=== PATIENT | male | born 1965 | race Caucasian/White ===

== ENCOUNTER 2021-03-24 17:02 | Inpatient (IN) ==
[2021-03-24] MEDS ORDERED: SODIUM CHLORIDE 0.9% 1,000 ML IV STA (18:32)
[2021-03-24 18:40] LABS: Basophils % 0.1 % (0.0-0.8); Hematocrit 30.1 VOL% (42.0-52.0); Hemoglobin 9.9 GM/DL (14.0-18.0); Immature Granulocytes % 0.6 %; Lymphocytes # 2.1 10*3/uL (1.4-4.0); Lymphocytes % 13.6 % (21.2-54.2); Mean Corpuscular HGB Conc 32.9 GM/DL (32-36); Mean Corpuscular Volume 82.5 FL (87-102); Mean Platelet Volume 8.8 FL (9.6-12.0); Monocytes % 7.3 % (1.7-12.7); Neutrophils % 78.4 % (38.7-73.9); Platelet Count 765 T/CUMM (130-400); Red Blood Count 3.65 MC/CUMM (3.8-5.5); Red Cell Distribution Width 14.5 % (9.3-17.3); White Blood Count 15.5 T/CUMM (4-12)
[2021-03-24 18:57] LABS: Albumin 2.1 G/DL (3.4-5.0); Bilirubin,Total 0.4 MG/DL (0.20-1.00); Osmolality,Calculated 265.4 MOS/KG (273-304); Potassium 3.9 MMOL/L (3.5-5.1)
[2021-03-24] MEDS ORDERED: LEVOFLOXACIN INJ 750 MG/150 ML PREMIX IV STA (19:12)
[2021-03-24 19:31] LABS: Bilirubin,Urine Negative (Negative); Blood, Urine Small mg/dL (Negative); Calcium Oxalate Crystals,Urine Occasional /HPF (Few); Glucose,Urine (UA) Negative (Negative); Ketones,Urine 5 mg/dL (Negative); Mucus,Urine Occasional /LPF (Occasional); Nitrite,Urine Negative (Negative); Protein,Urine 30 MG/DL; RBC,Urine 1 /HPF (0-4); Squamous Epithelial Cell,Urine Occasional /HPF (0-10); Urine Appearance CLEAR (Clear); Urine Color Yellow (Yellow); Urine Specific Gravity 1.014 (1.001-1.035); Urine Urobilinogen < 2.0 EU/DL (0.2-1.0)
[2021-03-24] MEDS ORDERED: NICOTINE 21 MG/24 HR PATCH TRANSDERM PRN (19:54)
[2021-03-24] MEDS ORDERED: GLUCAGON 1 MG VIAL IM PRN (19:54)
[2021-03-24] MEDS ORDERED: DEXTROSE 50% 25 GM/50 ML VIAL IV PRN (19:54)
[2021-03-24] MEDS: ONDANSETRON 4 MG/2 ML VIAL IV PRN ×2 (20:45→23:55)
[2021-03-24] MEDS: DEXTROSE 5% NACL 0.45% 1,000 ML IV SCH (22:48)
[2021-03-24] MEDS: ENOXAPARIN 40 MG/0.4 ML SYRINGE SUBCUT SCH (22:54)
[2021-03-25] MEDS: ALBUTEROL/IPRATROPIUM 3 ML NEB RESP TX SCH ×4 (01:49→19:18)
[2021-03-25] MEDS ORDERED: PROMETHAZINE 25 MG/1 ML VIAL IM ONE (03:11)
[2021-03-25 05:49] LABS: Basophils % 0.2 % (0.0-0.8); Eosinophils % 0.4 % (0.00-10.9); Hematocrit 27.4 VOL% (42.0-52.0); Hemoglobin 9.1 GM/DL (14.0-18.0); Immature Granulocytes % 0.5 %; Immature Granulocytes Absolute 0.06 #; Lymphocytes # 2.4 10*3/uL (1.4-4.0); Lymphocytes % 21.5 % (21.2-54.2); Mean Corpuscular HGB Conc 33.2 GM/DL (32-36); Mean Corpuscular Volume 81.8 FL (87-102); Mean Platelet Volume 8.8 FL (9.6-12.0); Monocytes % 9.4 % (1.7-12.7); Platelet Count 633 T/CUMM (130-400); Red Blood Count 3.35 MC/CUMM (3.8-5.5); Red Cell Distribution Width 14.5 % (9.3-17.3); White Blood Count 11.4 T/CUMM (4-12)
[2021-03-25 06:10] LABS: Calcium 9.1 MG/DL (8.5-10.1); Osmolality,Calculated 264.4 MOS/KG (273-304); Potassium 3.5 MMOL/L (3.5-5.1)
[2021-03-25 06:14] LABS: % Iron Saturation 14.6 % (18-50); Ferritin 541.9 ng/ml (26-388)
[2021-03-25 06:18] LABS: Folate 8.32 NG/ML (5.38-24.0); Vitamin B12 654 PG/ML (211-911)
[2021-03-25 07:20] LABS: Sedimentation Rate-Westergren 120 MM/HR (0-20)
[2021-03-25] MEDS: cefTRIAXone 2,000 MG in SODIUM CHLORIDE 0.9% 100 ML IV SCH (09:06)
[2021-03-25] MEDS: CHOLECALCIFEROL 1,000 UNIT TABLET PO SCH (09:06)
[2021-03-25] MEDS: DEXTROSE 5% NACL 0.45% 1,000 ML IV SCH ×2 (09:06→19:30)
[2021-03-25] MEDS: AZITHROMYCIN INJ 500 MG in SODIUM CHLORIDE 0.9% 250 ML IV SCH (10:16)
[2021-03-25 13:20] LABS: INR 1.3; PT Patient Result 14.2 SECS (10.5-12.0)
[2021-03-25] MEDS: PROMETHAZINE 25 MG/1 ML VIAL IM PRN (17:18)
[2021-03-25] MEDS: ENOXAPARIN 40 MG/0.4 ML SYRINGE SUBCUT SCH (21:21)
[2021-03-26] MEDS: ALBUTEROL/IPRATROPIUM 3 ML NEB RESP TX SCH ×4 (01:15→19:27)
[2021-03-26 04:31] LABS: Basophils % 0.2 % (0.0-0.8); Eosinophils # 0.2 10*3/uL (0.0-0.87); Eosinophils % 1.6 % (0.00-10.9); Hematocrit 26.4 VOL% (42.0-52.0); Hemoglobin 8.4 GM/DL (14.0-18.0); Immature Granulocytes % 0.6 %; Immature Granulocytes Absolute 0.06 #; Lymphocytes # 2.8 10*3/uL (1.4-4.0); Lymphocytes % 25.5 % (21.2-54.2); Mean Corpuscular HGB Conc 31.8 GM/DL (32-36); Mean Corpuscular Volume 84.6 FL (87-102); Mean Platelet Volume 8.5 FL (9.6-12.0); Monocytes % 10.3 % (1.7-12.7); Neutrophils % 61.8 % (38.7-73.9); Platelet Count 633 T/CUMM (130-400); Red Blood Count 3.12 MC/CUMM (3.8-5.5); Red Cell Distribution Width 14.6 % (9.3-17.3); White Blood Count 10.9 T/CUMM (4-12)
[2021-03-26 04:57] LABS: Eosinophils 1 % (0-10); Hypochromasia 1+; Lymphocytes 20 % (20-55); Microcytosis 1+; Platelet Estimate Increased; Segmented Neutrophils 72 % (50-85); Total Cells Counted 100
[2021-03-26 05:07] LABS: Calcium 8.7 MG/DL (8.5-10.1); Osmolality,Calculated 267.1 MOS/KG (273-304); Potassium 3.5 MMOL/L (3.5-5.1)
[2021-03-26] MEDS: DEXTROSE 5% NACL 0.45% 1,000 ML IV SCH ×2 (05:41→17:23)
[2021-03-26] MEDS: CHOLECALCIFEROL 1,000 UNIT TABLET PO SCH (09:50)
[2021-03-26] MEDS: FERROUS SULFATE 325 MG TABLET PO SCH (09:51)
[2021-03-26] MEDS: cefTRIAXone 2,000 MG in SODIUM CHLORIDE 0.9% 100 ML IV SCH (09:51)
[2021-03-26] MEDS: AZITHROMYCIN INJ 500 MG in SODIUM CHLORIDE 0.9% 250 ML IV SCH (09:55)
[2021-03-26 10:55] LABS: Hemoglobin A1 (Alkaline) 97.7 % (96.5-98.5); Hemoglobin A2 (Alkaline) 2.3 % (1.5-3.5)
[2021-03-26] MEDS ORDERED: VANCOMYCIN INJ 1,000 MG in SODIUM CHLORIDE 0.9% 250 ML IV ONE (15:00)
[2021-03-26] MEDS: PIPERACILLIN/TAZOBACTAM 3,375 MG in SODIUM CHLORIDE 0.9% 100 ML IV SCH (17:12)
[2021-03-26] MEDS: PROMETHAZINE 25 MG/1 ML VIAL IM PRN (19:57)
[2021-03-26] MEDS: ENOXAPARIN 40 MG/0.4 ML SYRINGE SUBCUT SCH (19:59)
[2021-03-27] MEDS: PIPERACILLIN/TAZOBACTAM 3,375 MG in SODIUM CHLORIDE 0.9% 100 ML IV SCH ×3 (00:31→17:39)
[2021-03-27] MEDS: ALBUTEROL/IPRATROPIUM 3 ML NEB RESP TX SCH ×4 (00:53→19:40)
[2021-03-27 04:59] LABS: Basophils % 0.2 % (0.0-0.8); Eosinophils # 0.3 10*3/uL (0.0-0.87); Eosinophils % 3.1 % (0.00-10.9); Hematocrit 26.7 VOL% (42.0-52.0); Hemoglobin 8.5 GM/DL (14.0-18.0); Immature Granulocytes % 0.4 %; Immature Granulocytes Absolute 0.04 #; Lymphocytes # 2.8 10*3/uL (1.4-4.0); Lymphocytes % 31.4 % (21.2-54.2); Mean Corpuscular HGB Conc 31.8 GM/DL (32-36); Mean Corpuscular Volume 84.2 FL (87-102); Mean Platelet Volume 8.8 FL (9.6-12.0); Monocytes % 10.7 % (1.7-12.7); Neutrophils % 54.2 % (38.7-73.9); Platelet Count 655 T/CUMM (130-400); Red Blood Count 3.17 MC/CUMM (3.8-5.5); Red Cell Distribution Width 14.7 % (9.3-17.3); White Blood Count 9.1 T/CUMM (4-12)
[2021-03-27 05:27] LABS: Calcium 8.8 MG/DL (8.5-10.1); Potassium 3.6 MMOL/L (3.5-5.1)
[2021-03-27] MEDS: CHOLECALCIFEROL 1,000 UNIT TABLET PO SCH (09:15)
[2021-03-27] MEDS: FERROUS SULFATE 325 MG TABLET PO SCH (09:15)
[2021-03-27] MEDS ORDERED: fentaNYL 100 MCG/2 ML VIAL ONE (10:50)
[2021-03-27] MEDS ORDERED: SEVOFLURANE 1 UNIT/15 MINUTE INH ONE (10:56)
[2021-03-27] MEDS ORDERED: MIDAZOLAM 2 MG/2 ML VIAL ONE (10:56)
[2021-03-27] MEDS ORDERED: propofoL 200 MG/20 ML VIAL IV ONE (10:56)
[2021-03-27] MEDS ORDERED: ONDANSETRON 4 MG/2 ML VIAL ONE (10:56)
[2021-03-27] MEDS ORDERED: LIDOCAINE 2% 5 ML VIAL ONE (10:56)
[2021-03-27] MEDS ORDERED: ROCURONIUM 50 MG/5 ML VIAL IV ONE (10:56)
[2021-03-27] MEDS ORDERED: SUCCINYLCHOLINE 200 MG/10 ML VIAL ONE (10:56)
[2021-03-27] MEDS ORDERED: POTASSIUM CHLORIDE RIDER 10 MEQ/100 ML PREMIX IV SCH (11:00)
[2021-03-27] MEDS ORDERED: KETAMINE 500 MG/10 ML VIAL ONE (11:55)
[2021-03-27] MEDS ORDERED: LACTATED RINGERS 1,000 ML IV ONE (11:56)
[2021-03-27] MEDS ORDERED: MINERAL OIL/PETROLATUM OPH OINT 3.5 GM TUBE ONE (12:22)
[2021-03-27] MEDS ORDERED: KETOROLAC 30 MG/1 ML VIAL ONE (12:37)
[2021-03-27] MEDS ORDERED: HYDROmorphone 2 MG/1 ML VIAL ONE (13:39)
[2021-03-27] MEDS ORDERED: ONDANSETRON 4 MG/2 ML VIAL IV PRN (13:42)
[2021-03-27] MEDS: HYDROmorphone 2 MG/1 ML VIAL IV PRN ×3 (13:44→19:56)
[2021-03-27] MEDS: KETOROLAC 10 MG TABLET PO SCH ×2 (17:40→21:56)
[2021-03-28] MEDS: DEXTROSE 5% NACL 0.45% 1,000 ML IV SCH ×4 (00:37→22:41)
[2021-03-28] MEDS: PIPERACILLIN/TAZOBACTAM 3,375 MG in SODIUM CHLORIDE 0.9% 100 ML IV SCH ×3 (01:18→17:32)
[2021-03-28 02:10] LABS: Basophils % 0.2 % (0.0-0.8); Eosinophils # 0.3 10*3/uL (0.0-0.87); Eosinophils % 2.2 % (0.00-10.9); Hematocrit 25.2 VOL% (42.0-52.0); Immature Granulocytes % 0.8 %; Lymphocytes # 2.7 10*3/uL (1.4-4.0); Lymphocytes % 21.9 % (21.2-54.2); Mean Corpuscular HGB Conc 31.7 GM/DL (32-36); Mean Corpuscular Volume 85.1 FL (87-102); Mean Platelet Volume 8.6 FL (9.6-12.0); Monocytes % 8.9 % (1.7-12.7); Platelet Count 632 T/CUMM (130-400); Red Blood Count 2.96 MC/CUMM (3.8-5.5); Red Cell Distribution Width 14.8 % (9.3-17.3); White Blood Count 12.4 T/CUMM (4-12)
[2021-03-28 02:29] LABS: Calcium 8.6 MG/DL (8.5-10.1); Osmolality,Calculated 267.1 MOS/KG (273-304); Potassium 3.5 MMOL/L (3.5-5.1)
[2021-03-28] MEDS: KETOROLAC 10 MG TABLET PO SCH ×4 (04:02→20:26)
[2021-03-28] MEDS: ALBUTEROL/IPRATROPIUM 3 ML NEB RESP TX SCH ×4 (07:17→19:35)
[2021-03-28] MEDS: CHOLECALCIFEROL 1,000 UNIT TABLET PO SCH (08:21)
[2021-03-28] MEDS: FERROUS SULFATE 325 MG TABLET PO SCH (08:22)
[2021-03-28] MEDS: HYDROmorphone 2 MG/1 ML VIAL IV PRN ×2 (09:17→18:29)
[2021-03-28 11:27] LABS: 25-Hydroxy D Total 17 ng/mL; 25-Hydroxy D2 < 4.0 ng/mL; 25-Hydroxy D3 17 ng/mL
[2021-03-28] MEDS: ENOXAPARIN 40 MG/0.4 ML SYRINGE SUBCUT SCH (20:27)
[2021-03-29] MEDS: PIPERACILLIN/TAZOBACTAM 3,375 MG in SODIUM CHLORIDE 0.9% 100 ML IV SCH ×4 (00:37→16:26)
[2021-03-29] MEDS: KETOROLAC 10 MG TABLET PO SCH ×5 (03:55→20:02)
[2021-03-29 05:45] LABS: Basophils % 0.2 % (0.0-0.8); Eosinophils # 0.3 10*3/uL (0.0-0.87); Eosinophils % 2.8 % (0.00-10.9); Hematocrit 24.5 VOL% (42.0-52.0); Hemoglobin 7.7 GM/DL (14.0-18.0); Immature Granulocytes % 0.8 %; Immature Granulocytes Absolute 0.09 #; Lymphocytes # 2.3 10*3/uL (1.4-4.0); Lymphocytes % 20.6 % (21.2-54.2); Mean Corpuscular HGB Conc 31.4 GM/DL (32-36); Mean Corpuscular Volume 84.5 FL (87-102); Mean Platelet Volume 8.6 FL (9.6-12.0); Monocytes % 9.4 % (1.7-12.7); Neutrophils % 66.2 % (38.7-73.9); Platelet Count 597 T/CUMM (130-400); Red Cell Distribution Width 14.9 % (9.3-17.3)
[2021-03-29 06:08] LABS: Calcium 8.5 MG/DL (8.5-10.1); Osmolality,Calculated 274.5 MOS/KG (273-304); Potassium 3.3 MMOL/L (3.5-5.1)
[2021-03-29] MEDS: DEXTROSE 5% NACL 0.45% 1,000 ML IV SCH (07:33)
[2021-03-29] MEDS: ALBUTEROL/IPRATROPIUM 3 ML NEB RESP TX SCH ×4 (07:35→20:48)
[2021-03-29] MEDS: FERROUS SULFATE 325 MG TABLET PO SCH ×2 (08:05→08:11)
[2021-03-29] MEDS: CHOLECALCIFEROL 1,000 UNIT TABLET PO SCH ×2 (08:05→08:11)
[2021-03-29] MEDS ORDERED: POTASSIUM CHLORIDE 20 MEQ TABLET PO ONE (11:00)
[2021-03-29 13:59] LABS: Calcium 8.7 MG/DL (8.5-10.1); Osmolality,Calculated 269.8 MOS/KG (273-304); Potassium 3.4 MMOL/L (3.5-5.1)
[2021-03-29] MEDS: HYDROmorphone 2 MG/1 ML VIAL IV PRN (14:55)
[2021-03-29] MEDS: ENOXAPARIN 40 MG/0.4 ML SYRINGE SUBCUT SCH (20:02)
[2021-03-30] MEDS: ALBUTEROL/IPRATROPIUM 3 ML NEB RESP TX SCH ×4 (00:23→19:25)
[2021-03-30] MEDS: KETOROLAC 10 MG TABLET PO SCH ×4 (04:17→20:47)
[2021-03-30 06:05] LABS: Basophils % 0.2 % (0.0-0.8); Eosinophils # 0.3 10*3/uL (0.0-0.87); Eosinophils % 3.2 % (0.00-10.9); Hematocrit 24.9 VOL% (42.0-52.0); Hemoglobin 8.2 GM/DL (14.0-18.0); Immature Granulocytes Absolute 0.09 #; Lymphocytes # 1.9 10*3/uL (1.4-4.0); Mean Corpuscular HGB Conc 32.9 GM/DL (32-36); Mean Corpuscular Volume 82.5 FL (87-102); Mean Platelet Volume 8.5 FL (9.6-12.0); Monocytes % 9.7 % (1.7-12.7); Neutrophils % 64.9 % (38.7-73.9); Platelet Count 588 T/CUMM (130-400); Red Blood Count 3.02 MC/CUMM (3.8-5.5); Red Cell Distribution Width 14.9 % (9.3-17.3); White Blood Count 9.1 T/CUMM (4-12)
[2021-03-30 06:39] LABS: Osmolality,Calculated 273.5 MOS/KG (273-304); Potassium 3.6 MMOL/L (3.5-5.1)
[2021-03-30] MEDS: CHOLECALCIFEROL 1,000 UNIT TABLET PO SCH (09:27)
[2021-03-30] MEDS: FERROUS SULFATE 325 MG TABLET PO SCH (09:27)
[2021-03-30] MEDS: PIPERACILLIN/TAZOBACTAM 3,375 MG in SODIUM CHLORIDE 0.9% 100 ML IV SCH ×3 (09:28→17:55)
[2021-03-30] MEDS: HYDROmorphone 2 MG/1 ML VIAL IV PRN (20:45)
[2021-03-30] MEDS: ENOXAPARIN 40 MG/0.4 ML SYRINGE SUBCUT SCH (20:46)
[2021-03-31] MEDS: PIPERACILLIN/TAZOBACTAM 3,375 MG in SODIUM CHLORIDE 0.9% 100 ML IV SCH ×2 (01:24→09:20)
[2021-03-31] MEDS: KETOROLAC 10 MG TABLET PO SCH ×4 (02:49→20:50)
[2021-03-31 07:26] LABS: Basophils % 0.2 % (0.0-0.8); Eosinophils # 0.4 10*3/uL (0.0-0.87); Eosinophils % 4.3 % (0.00-10.9); Hematocrit 25.7 VOL% (42.0-52.0); Hemoglobin 8.5 GM/DL (14.0-18.0); Immature Granulocytes % 1.2 %; Immature Granulocytes Absolute 0.12 #; Lymphocytes # 2.4 10*3/uL (1.4-4.0); Lymphocytes % 23.5 % (21.2-54.2); Mean Corpuscular HGB Conc 33.1 GM/DL (32-36); Mean Corpuscular Volume 82.1 FL (87-102); Mean Platelet Volume 8.5 FL (9.6-12.0); Monocytes % 8.5 % (1.7-12.7); Neutrophils % 62.3 % (38.7-73.9); Platelet Count 672 T/CUMM (130-400); Red Blood Count 3.13 MC/CUMM (3.8-5.5); Red Cell Distribution Width 14.9 % (9.3-17.3); White Blood Count 10.2 T/CUMM (4-12)
[2021-03-31] MEDS: ALBUTEROL/IPRATROPIUM 3 ML NEB RESP TX SCH ×4 (07:35→19:32)
[2021-03-31 07:50] LABS: Calcium 9.3 MG/DL (8.5-10.1); Osmolality,Calculated 268.8 MOS/KG (273-304)
[2021-03-31] MEDS: FERROUS SULFATE 325 MG TABLET PO SCH (09:20)
[2021-03-31] MEDS: CHOLECALCIFEROL 1,000 UNIT TABLET PO SCH (09:20)
[2021-03-31] MEDS: CLINDAMYCIN INJ 900 MG/50 ML PREMIX IV SCH ×2 (10:55→17:43)
[2021-03-31] MEDS: HYDROmorphone 2 MG/1 ML VIAL IV PRN ×2 (10:56→19:47)
[2021-03-31] MEDS ORDERED: BISACODYL 10 MG SUPP RECTAL ONE (11:41)
[2021-03-31] MEDS: ENOXAPARIN 40 MG/0.4 ML SYRINGE SUBCUT SCH (20:50)
[2021-03-31] MEDS: DOCUSATE SODIUM 100 MG CAPSULE PO SCH (20:50)
[2021-04-01] MEDS: ALBUTEROL/IPRATROPIUM 3 ML NEB RESP TX SCH ×4 (00:41→20:18)
[2021-04-01] MEDS: CLINDAMYCIN INJ 900 MG/50 ML PREMIX IV SCH ×3 (02:04→17:18)
[2021-04-01] MEDS: KETOROLAC 10 MG TABLET PO SCH ×2 (02:34→08:43)
[2021-04-01 05:54] LABS: Basophils % 0.3 % (0.0-0.8); Eosinophils # 0.5 10*3/uL (0.0-0.87); Eosinophils % 4.5 % (0.00-10.9); Hematocrit 25.7 VOL% (42.0-52.0); Hemoglobin 8.2 GM/DL (14.0-18.0); Immature Granulocytes % 1.5 %; Immature Granulocytes Absolute 0.18 #; Lymphocytes # 3.2 10*3/uL (1.4-4.0); Lymphocytes % 27.3 % (21.2-54.2); Mean Corpuscular HGB Conc 31.9 GM/DL (32-36); Mean Corpuscular Volume 83.4 FL (87-102); Mean Platelet Volume 8.4 FL (9.6-12.0); Monocytes % 9.1 % (1.7-12.7); Neutrophils % 57.3 % (38.7-73.9); Platelet Count 706 T/CUMM (130-400); Red Blood Count 3.08 MC/CUMM (3.8-5.5); White Blood Count 11.9 T/CUMM (4-12)
[2021-04-01 06:23] LABS: Calcium 9.4 MG/DL (8.5-10.1)
[2021-04-01] MEDS: FERROUS SULFATE 325 MG TABLET PO SCH (08:43)
[2021-04-01] MEDS: CHOLECALCIFEROL 1,000 UNIT TABLET PO SCH (08:43)
[2021-04-01] MEDS: DOCUSATE SODIUM 100 MG CAPSULE PO SCH ×2 (08:44→20:20)
[2021-04-01] MEDS: POLYETHYLENE GLYCOL POWDER 17 GM PACK PO SCH (08:44)
[2021-04-01] MEDS: HYDROmorphone 2 MG/1 ML VIAL IV PRN ×2 (10:24→20:21)
[2021-04-01] MEDS: PANTOPRAZOLE 40 MG TABLET PO SCH (17:18)
[2021-04-01] MEDS: ENOXAPARIN 40 MG/0.4 ML SYRINGE SUBCUT SCH (20:20)
[2021-04-02] MEDS: ALBUTEROL/IPRATROPIUM 3 ML NEB RESP TX SCH ×4 (00:20→19:35)
[2021-04-02] MEDS: CLINDAMYCIN INJ 900 MG/50 ML PREMIX IV SCH ×3 (02:23→18:13)
[2021-04-02 05:59] LABS: Basophils % 0.2 % (0.0-0.8); Eosinophils # 0.3 10*3/uL (0.0-0.87); Eosinophils % 2.3 % (0.00-10.9); Hematocrit 27.1 VOL% (42.0-52.0); Hemoglobin 8.6 GM/DL (14.0-18.0); Immature Granulocytes % 1.5 %; Lymphocytes % 22.2 % (21.2-54.2); Mean Corpuscular HGB Conc 31.7 GM/DL (32-36); Mean Corpuscular Volume 83.9 FL (87-102); Mean Platelet Volume 8.4 FL (9.6-12.0); Neutrophils % 65.8 % (38.7-73.9); Platelet Count 733 T/CUMM (130-400); Red Blood Count 3.23 MC/CUMM (3.8-5.5); Red Cell Distribution Width 15.5 % (9.3-17.3); White Blood Count 13.7 T/CUMM (4-12)
[2021-04-02 06:29] LABS: Calcium 9.2 MG/DL (8.5-10.1); Osmolality,Calculated 271.8 MOS/KG (273-304); Potassium 4.1 MMOL/L (3.5-5.1)
[2021-04-02] MEDS: HYDROmorphone 2 MG/1 ML VIAL IV PRN ×2 (07:59→18:25)
[2021-04-02] MEDS: FERROUS SULFATE 325 MG TABLET PO SCH (08:00)
[2021-04-02] MEDS: CHOLECALCIFEROL 1,000 UNIT TABLET PO SCH (08:00)
[2021-04-02] MEDS: POLYETHYLENE GLYCOL POWDER 17 GM PACK PO SCH (08:00)
[2021-04-02] MEDS: DOCUSATE SODIUM 100 MG CAPSULE PO SCH ×2 (08:00→21:05)
[2021-04-02] MEDS: PANTOPRAZOLE 40 MG TABLET PO SCH (08:01)
[2021-04-02] MEDS: ENOXAPARIN 40 MG/0.4 ML SYRINGE SUBCUT SCH (21:06)
[2021-04-03] MEDS: ALBUTEROL/IPRATROPIUM 3 ML NEB RESP TX SCH ×3 (01:00→13:24)
[2021-04-03] MEDS: CLINDAMYCIN INJ 900 MG/50 ML PREMIX IV SCH ×2 (02:03→09:29)
[2021-04-03] MEDS: HYDROmorphone 2 MG/1 ML VIAL IV PRN (03:08)
[2021-04-03] MEDS: POLYETHYLENE GLYCOL POWDER 17 GM PACK PO SCH (09:12)
[2021-04-03] MEDS: CHOLECALCIFEROL 1,000 UNIT TABLET PO SCH (09:12)
[2021-04-03] MEDS: PANTOPRAZOLE 40 MG TABLET PO SCH (09:13)
[2021-04-03] MEDS: DOCUSATE SODIUM 100 MG CAPSULE PO SCH (09:13)
[2021-04-03] MEDS: FERROUS SULFATE 325 MG TABLET PO SCH (09:13)
[2021-04-03 11:26] VITALS: BP 140/83
== END 2021-04-03 14:06 | disposition home or self-care (01) | DRG 163 ==
LOC: N.ED 17:02 → N.EDINP 19:54 → SUATTDRO 19:54 → N.5E 21:30
PROVIDERS: ADMIT Internal Medicine; ATTEND Internal Medicine